=== PATIENT | female | born 1975 | race Caucasian/White ===

== ENCOUNTER 2018-03-31 01:05 | Emergency (ER) | payer BC ==
[~2018-03-31] VITALS: Ht 167.6 cm; Wt 98.9 kg
[2018-03-31 01:45] VITALS: BP_SYST 142
[2018-03-31] MEDS ORDERED: HYDROcodone/ACETAMIN 10-325 MG TAB PO ONE (03:00)
[2018-03-31] MEDS ORDERED: KETOROLAC TROMETHAMINE 60 MG/2 ML VIAL IM ONE (03:00)
[2018-03-31 03:32] VITALS: BP_SYST 135
== END 2018-03-31 03:31 | disposition home or self-care (01) ==
LOC: SED 01:05
DX: M75.22 Bicipital tendinitis, left shoulder (principal)
CPT/HCPCS: 73030; 96372; 99284; J1885

== ENCOUNTER 2021-06-06 22:24 | Emergency (ER) | payer BC ==
[~2021-06-06] VITALS: Ht 167.6 cm; Wt 105.7 kg
[2021-06-06 22:37] VITALS: BP_SYST 135
--- NOTE | 2021-06-07 00:10 | NUR ---
Patient to ER bed HALLWAY CHAIR 1 to gown for evaluation. Side rails up.
--- NOTE | 2021-06-07 00:47 | NUR ---
PATIENT AAOX4 AND AMBULATORY FROM HOME C/O LEFT SHOULDER PAIN. PER PATIENT IT STARTED TODAY WITH SWELLING. VSS. DENIES ANY TRAUMA OR HEAVY LIFTING. DENIES TAKING ANY MEDICATION AT HOME FOR PAIN.
--- NOTE | 2021-06-07 01:30 | NUR ---
DR. ZHAO AT BEDSIDE FOR EVALUATION.
[2021-06-07] MEDS ORDERED: CEPH250C PO (01:49)
[2021-06-07] MEDS ORDERED: DIPH25CA83 PO (01:49)
[2021-06-07 01:55] VITALS: BP_SYST 135
--- NOTE | 2021-06-07 01:56 | NUR ---
Patient given written and verbal discharge instructions and verbalizes understanding. ER MD discussed with patient the results and treatment provided. Patient in stable condition. ID arm band removed. IV catheter removed intact and dressing applied, no active bleeding. Rx of BENADRYL, KEFLEX given. Patient educated on pain management and to follow up with PMD. Pain Scale 0/10. Opportunity for questions provided and answered. Medication side effect fact sheet provided.
== END 2021-06-07 01:56 | disposition home or self-care (01) ==
LOC: SED 22:24
DX: T78.40XA Allergy, unspecified, initial encounter (principal); Z79.899 Other long term (current) drug therapy; X58.XXXA Exposure to other specified factors, initial encounter
CPT/HCPCS: 99283

== ENCOUNTER 2021-12-29 01:17 | Emergency (ER) | payer BC ==
[~2021-12-29] VITALS: Ht 167.6 cm; Wt 97.5 kg
[~2021-12-29 01:17] MED LIST: CEPH250C PO; DIPH25CA83 PO
[2021-12-29 02:00] VITALS: BP_SYST 118
--- NOTE | 2021-12-29 02:25 | NUR ---
Patient ambulatory to bed 8
--- NOTE | 2021-12-29 02:30 | NUR ---
INITIAL ASSESSMENT COMPLETED,CONNECTED TO BEDSIDE MONITOR VSS,AFEBRILE.
--- NOTE | 2021-12-29 02:32 | NUR ---
0232 DR PEDRO IN EXAMINING PATIENT
[2021-12-29] MEDS: KETOROLAC TROMETHAMINE 60 MG/2 ML VIAL IM ONE (02:34)
--- NOTE | 2021-12-29 02:35 | NUR ---
IM TORADOL 60MG GIVEN P/S 03/18
[2021-12-29] MEDS ORDERED: NAPR-1172 PO (02:49)
[2021-12-29 02:58] VITALS: BP_SYST 131
--- NOTE | 2021-12-29 03:00 | NUR ---
Patient given written and verbal discharge instructions and verbalizes understanding. ER MD PEDRO discussed with patient the results and treatment provided. Patient in stable condition. ID arm band removed. Rx of NAPROXEN given. Patient educated on pain management and to follow up with PMD. Pain Scale 4. Opportunity for questions provided and answered. Medication side effect fact sheet provided.
== END 2021-12-29 02:58 | disposition home or self-care (01) ==
LOC: SED 01:17
DX: M43.6 Torticollis (principal); Z79.899 Other long term (current) drug therapy
CPT/HCPCS: 96372; 99283; J1885